=== PATIENT | male | born 1950 | race Caucasian/White ===

== ENCOUNTER 2020-01-03 09:15 | Inpatient (IN) | payer OTHER ==
[~2020-01-03] VITALS: Ht 30.5 cm; Wt 6.0 kg
[2020-01-03] MEDS ORDERED: HYZAAR 100-12.1 EACH (13:25)
[2020-01-03] MEDS ORDERED: METFORMIN (13:25)
[2020-01-03] MEDS ORDERED: LIPITOR40 M1 (13:26)
[2020-01-03] MEDS ORDERED: SYNTHROID50 MCG (13:26)
[2020-01-03] MEDS ORDERED: ECOTRIN81 MG (13:26)
[2020-01-03] MEDS ORDERED: CARVEDILOL25 MG (13:26)
[2020-01-03] MEDS ORDERED: JANUVIA100 MG (13:27)
[2020-01-03] MEDS ORDERED: NORVASC (13:27)
[2020-01-10] MEDS ORDERED: AMLODIPINE BESYL5 MG (11:39)
[2020-01-10] MEDS ORDERED: METFORMIN HCL750 MG (11:39)
[2020-01-10] MEDS ORDERED: COMBIGAN EYE DRO5 ML (11:39)
[2020-01-10] MEDS ORDERED: BRILINTA90 MG (11:39)
[2020-01-10] MEDS ORDERED: LOSARTAN POTAS100 MG (11:40)
[2020-01-10] MEDS ORDERED: TACROLIMUS30 G1 (11:40)
[2020-01-10] MEDS ORDERED: CALCIPOTRIENE60 G1 (11:40)
[2020-01-10] MEDS ORDERED: KETOCONAZOLE15 GM (11:40)
[2020-01-10] MEDS ORDERED: LUMIGAN2.5 M1 (11:40)
[2020-01-15] MEDS ORDERED: HYOSCYAMINE0.125 M1 SL (14:46)
[2020-01-15] MEDS ORDERED: OXYC1TAB9 PO (14:47)
[2020-01-15] MEDS ORDERED: SM VITAMIN B C0.4 MG PO (14:48)
[2020-01-15] MEDS ORDERED: INTEGRA F CAPS1 EACH PO (14:48)
[2020-01-15] MEDS ORDERED: INTESTINEX680 M1 PO (14:48)
[2020-01-15] MEDS ORDERED: PANTOPRAZOLE SO40 MG PO (14:49)
== END 2020-01-15 20:03 | disposition home or self-care (01) | DRG 330 ==
LOC: SURH 01-10 09:15 → O/R 01-10 09:50 → SURG 01-10 09:50 → SURH 01-10 10:00 → SURG 01-10 18:14 → SURH 01-11 16:26
PROVIDERS: ADMIT Surgery; ATTEND Surgery
PROC: 07BC4ZX Excision of Pelvis Lymphatic, Percutaneous Endoscopic Approach, Diagnostic (ICD-10-PCS; 2020-01-10)
PROC: 0DTF4ZZ Resection of Right Large Intestine, Percutaneous Endoscopic Approach (ICD-10-PCS; principal; 2020-01-10 10:00)
PROC: 30233N1 Transfusion of Nonautologous Red Blood Cells into Peripheral Vein, Percutaneous Approach (ICD-10-PCS; 2020-01-12)
DX: D12.2 Benign neoplasm of ascending colon (principal); K62.5 Hemorrhage of anus and rectum; R71.0 Precipitous drop in hematocrit; D17.79 Benign lipomatous neoplasm of other sites; E11.9 Type 2 diabetes mellitus without complications; I10 Essential (primary) hypertension; E87.6 Hypokalemia